=== PATIENT | female | born 1980 | race Caucasian/White ===

== ENCOUNTER 2020-09-18 06:13 | Emergency (ER) | payer OTHER ==
[~2020-09-18] VITALS: Ht 167.6 cm; Wt 64.0 kg
--- NOTE | 2020-09-18 06:31 | NUR ---
PT STATES L BREAST PAIN STARTED AT 0000 TONIGHT. STATES PAIN WOKE HER UP, AND HAS NOT GOT BETTER. PAIN IS WORSE C DEEP BREATH. PT HAS HX OF PLURISY. ON MONITORS. TBS.
[2020-09-18] MEDS ORDERED: KETOROLAC 30 MG/1 ML ONE (06:49)
[2020-09-18] MEDS ORDERED: ASPIRIN 81 MG TABLET CHEW ONE (06:50)
[2020-09-18 06:59] LABS: BASOPHILS % (AUTO) 1 % (0-1); EOSINOPHILS % (AUTO) 1 % (1-7); LYMPHOCYTES % (AUTO) 18 % (22-44); MEAN CORPUSCULAR HEMOGLOBIN 30.4 pg (27.0-34.8); MEAN CORPUSCULAR HGB CONC 34.1 g/dL (32.4-35.8); MEAN PLATELET VOLUME 8.6 fL (7.4-10.4); MONOCYTES % (AUTO) 6 % (2-9); NEUTROPHILS % (AUTO) 74 % (42-75); PLATELET COUNT 207 x10^3/uL (130-400); RED BLOOD COUNT 4.21 x10^6/uL (3.82-5.3); RED CELL DISTRIBUTION WIDTH 13.7 % (9.6-15.2)
[2020-09-18] MEDS ORDERED: ASPIRIN 81 MG TABLET CHEW PO ONE (07:00)
[2020-09-18] MEDS ORDERED: KETOROLAC 30 MG/1 ML IVPush ONE (07:00)
[2020-09-18] MEDS ORDERED: SODIUM CHLORIDE FLUSH 10ML SYR IVF ONE (07:00)
[2020-09-18 07:06] LABS: MD NO
[2020-09-18 07:07] LABS: ALANINE AMINOTRANSFERASE 18 U/L (12-78); ALBUMIN 3.1 g/dL (3.4-5.0); ANION GAP 6 mmol/L (5-15); CALCIUM 8.6 mg/dL (8.5-10.1); CHLORIDE 107 mmol/L (98-107); CREATININE 0.73 mg/dL (0.55-1.02)
[2020-09-18 07:12] LABS: ALKALINE PHOSPHATASE 70 U/L (45-117); BILIRUBIN,TOTAL 0.2 mg/dL (0.2-1.0); TOTAL PROTEIN 6.9 g/dL (6.4-8.2); TROPONIN I < 0.015 ng/mL (0.000-0.045)
--- NOTE | 2020-09-18 07:15 | NUR ---
REPORT FROM ABDULKADIR RODRIGUEZ RN. PT RESTING IN BED STATING BREAST PAIN 07/06. PT WAS MEDICATED PER [facility] BY JESUS MENDOZA VSS.
[2020-09-18 08:07] VITALS: BP 94/55
--- NOTE | 2020-09-18 08:29 | NUR ---
Patient given discharge instructions and they have confirmed that they understand the instructions. Patient ambulatory with steady gait.
== END 2020-09-18 08:30 | disposition home or self-care (01) ==
LOC: ED 08:24
DX: R07.89 Other chest pain (principal); J15.9 Unspecified bacterial pneumonia; F17.200 Nicotine dependence, unspecified, uncomplicated
CPT/HCPCS: 36415; 71045; 80053; 83690; 84484; 85025; 93005; 96374; 99285; J1885